=== PATIENT | female | born 1975 | race Caucasian/White ===

== ENCOUNTER 2018-02-22 00:21 | Emergency (ER) | payer MEDICARE, MEDICAID ==
[~2018-02-22] VITALS: Ht 170.2 cm; Wt 90.7 kg
[~2018-02-22 00:21] MED LIST: ABILIFY10 MG PO; ALPRAZOLAM0.5 M1 PO; BUPROPION; CARAFATE 1 GM TA1 G1 PO; CEPHALEXIN; CIPRO250 M1; CIPROFLOXACIN500 M3 OR; CIPROFLOXACIN500 M3 PO; CLONAZEPAM PO; CLONIPIN; FLOMAX0.4 MG PO; GEODON; GEODON60 MG PO; HYDROCODON-ACE1 EAC7; HYDROCODONE-AP1 EAC6 PO; KEFLEX500 MG PO; LAMICTAL XR100 MG PO; LEVSIN-SL0.125 MG PO; LEVSIN0.125 MG SUBLING; LORTAB 5 MG/5001 TA1; MAG-AL PLUS SUS30 ML PO; MOBIC15 MG PO; NEURONTIN300 MG PO; NICOTINE TRANSD21 M1; NITROFURANTOIN100 MG; NORCO 5-325 TA1 EACH PO; PERCOCET 5-3251 EACH PO; PHENAZOPYRIDIN200 M2 PO; PYRIDIUM200 M2 PO; PYRIDIUM200 MG PO; SENNA-S TABLET1 EACH PO; TYLENOL WITH CO1 TA1 PO; ULTRAM 50MG TAB50 MG PO; XANAX 0.25 MG0.25 MG PO; ZANAFLEX4 MG PO; ZOFRAN ODT4 MG PO; ZOFRAN4 MG PO
[2018-02-22 00:45] LABS: ABSOLUTE BASOPHILS 0.1 thou/uL (0.0-0.2); ABSOLUTE EOSINOPHILS 0.1 thou/uL (0.0-0.7); ABSOLUTE LYMPHOCYTES 1.1 thou/uL (0.8-5.3); ABSOLUTE MONOCYTES 0.3 thou/uL (0.0-1.2); ABSOLUTE NEUTROPHILS 6.9 thou/uL (1.6-8.1); BASOPHILS 0.6 %; EOSINOPHILS 0.8 %; HEMATOCRIT 40.2 % (37.0-47.0); HEMOGLOBIN 13.8 gm/dL (12.0-15.0); LYMPHOCYTES 13.3 %; MCH 33.5 pg (26.0-34.0); MCHC 34.3 g/dL (28.0-37.0); MCV 97.8 fL (80.0-100.0); MONOCYTES 3.2 %; MPV 7.7 fl. (7.2-11.1); NUCLEATED RBCS 0 /100WBC; PLATELET COUNT* 124 thou/uL (150-400); POLYS 82.1 %; RBC 4.11 mil/uL (4.20-5.00); RDW-CV 14.5 % (10.5-14.5); WBC 8.4 thou/uL (4.0-11.0)
[2018-02-22 00:55] LABS: APTT 30.1 Seconds (25.0-31.3); INR 1.1; PROTIME 10.3 Seconds (9.20-11.50)
[2018-02-22 01:01] LABS: CALCIUM 9.2 mg/dL (8.5-10.1); CREATININE 0.8 mg/dL (0.6-1.3); POTASSIUM 3.3 mmol/L (3.5-5.1)
[2018-02-22 01:06] LABS: TOTAL BILIRUBIN 0.6 mg/dL (<0.1-1.0); TOTAL PROTEIN 6.6 g/dL (6.4-8.2)
[2018-02-22 04:37] VITALS: BP 132/78
--- NOTE | 2018-02-22 17:57 | EKG ---
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
[2018-03-20] MEDS ORDERED: KEFLEX500 M1 PO (11:35)
[2018-03-20] MEDS ORDERED: VITAMIN D3400 UNIT PO (11:35)
== END 2018-02-22 04:38 | disposition home or self-care (01) ==
LOC: M.ERS 00:21
PROVIDERS: Personal Emergency Response Attendant
DX: R07.89 Other chest pain (principal); F41.9 Anxiety disorder, unspecified; F31.9 Bipolar disorder, unspecified; F17.210 Nicotine dependence, cigarettes, uncomplicated; Z88.2 Allergy status to sulfonamides; Z85.118 Personal history of other malignant neoplasm of bronchus and lung; Z85.841 Personal history of malignant neoplasm of brain

== ENCOUNTER 2018-03-09 06:47 | Emergency (ER) | payer MEDICARE, MEDICAID ==
[~2018-03-09] VITALS: Ht 170.2 cm; Wt 94.8 kg
[2018-03-09 07:09] VITALS: BP 124/72
[2018-03-09] MEDS ORDERED: DEXAMETHASONE1 MG PO (07:11)
[2018-03-09] MEDS ORDERED: KEPPRA250 MG PO (07:11)
[2018-03-09] MEDS ORDERED: FOLIC ACID1 MG PO (07:12)
[2018-03-09] MEDS ORDERED: ONDANSETRON HCL4 M2 PO (07:12)
[2018-03-20] MEDS ORDERED: VITAMIN D3400 UNIT PO (11:35)
[2018-03-20] MEDS ORDERED: KEFLEX500 M1 PO (11:35)
== END 2018-03-09 07:25 | disposition left against medical advice (07) ==
LOC: M.ERS 06:47
DX: M79.604 Pain in right leg (principal); M79.605 Pain in left leg; F31.9 Bipolar disorder, unspecified; F41.9 Anxiety disorder, unspecified; Z88.2 Allergy status to sulfonamides; Z90.710 Acquired absence of both cervix and uterus; Z87.442 Personal history of urinary calculi; Z85.118 Personal history of other malignant neoplasm of bronchus and lung; Z85.841 Personal history of malignant neoplasm of brain

== ENCOUNTER → 2018-03-20 | Outpatient (CLI) | payer MEDICARE, MEDICAID ==
[~2018-03-20] VITALS: Ht 170.2 cm; Wt 92.5 kg
[~2018-03-20] MED LIST changes: +ATIVAN0.5 MG PO; +DEXAMETHASONE1 MG PO; +ENOXAPARIN100 MG/11 SUBQ; +FLEXERIL PO; +FOLIC ACID1 MG PO; +KEFLEX500 M1 PO; +KEPPRA 500 MG500 M1 PO; +KEPPRA250 MG PO; +LIDOPIN28 GM TOP; +ONDANSETRON HCL4 M2 PO; +PERCOCET PO; +PHENERGAN 25 MG25 M1 PO; +PHENERGAN12.5 M2 RECTAL; +POTASSIUM20 PO; +TYLENOL325 M1 PO; +VITAMIN D3400 UNIT PO
[2018-03-20 11:17] VITALS: BP 128/83
[2018-03-20 11:18] LABS: HEMATOCRIT 36.1 % (37.0-47.0); HEMOGLOBIN 12.3 gm/dL (12.0-15.0); MCH 33.9 pg (26.0-34.0); MCV 99.5 fL (80.0-100.0); MPV 8.4 fl. (7.2-11.1); RBC 3.63 mil/uL (4.20-5.00); RDW-CV 14.8 % (10.5-14.5); WBC 4.6 thou/uL (4.0-11.0)
[2018-03-20 11:28] LABS: APTT 21.5 Seconds (25.0-31.3)
[2018-03-20 11:34] LABS: ALBUMIN 3.2 g/dL (3.4-5.0); CALCIUM 8.9 mg/dL (8.5-10.1); CREATININE 0.8 mg/dL (0.6-1.3); POTASSIUM 4.2 mmol/L (3.5-5.1); TOTAL BILIRUBIN 0.2 mg/dL (<0.1-1.0)
[2018-03-20 14:20] VITALS: BP 112/79
== END | disposition home or self-care (01) ==
LOC: M.INT 10:41
PROVIDERS: Radiology Diagnostic Radiology
DX: Z45.2 Encounter for adjustment and management of vascular access device (principal); C34.90 Malignant neoplasm of unspecified part of unspecified bronchus or lung; F31.9 Bipolar disorder, unspecified; F41.9 Anxiety disorder, unspecified; F17.210 Nicotine dependence, cigarettes, uncomplicated; Z90.710 Acquired absence of both cervix and uterus; Z87.442 Personal history of urinary calculi; Z85.841 Personal history of malignant neoplasm of brain; Z79.01 Long term (current) use of anticoagulants; Z79.899 Other long term (current) drug therapy; Z88.2 Allergy status to sulfonamides; Z80.9 Family history of malignant neoplasm, unspecified; Z82.3 Family history of stroke

== ENCOUNTER 2018-03-29 00:09 | Emergency (ER) | payer MEDICARE, MEDICAID ==
[~2018-03-29] VITALS: Ht 170.2 cm; Wt 97.1 kg
[~2018-03-29 00:09] MED LIST changes: -ATIVAN0.5 MG PO; -ENOXAPARIN100 MG/11 SUBQ; -FLEXERIL PO; -KEPPRA 500 MG500 M1 PO; -LIDOPIN28 GM TOP; -PERCOCET PO; -PHENERGAN 25 MG25 M1 PO; -PHENERGAN12.5 M2 RECTAL; -POTASSIUM20 PO; -TYLENOL325 M1 PO
[2018-03-29 01:44] LABS: ABSOLUTE NEUTROPHILS 4.6 thou/uL (1.6-8.1); BASOPHILS 0.4 %; EOSINOPHILS 0.1 %; HEMATOCRIT 36.8 % (37.0-47.0); HEMOGLOBIN 12.5 gm/dL (12.0-15.0); MCH 33.6 pg (26.0-34.0); MCHC 33.8 g/dL (28.0-37.0); MCV 99.4 fL (80.0-100.0); MONOCYTES 0.4 %; MPV 7.4 fl. (7.2-11.1); NUCLEATED RBCS 0 /100WBC; PLATELET COUNT* 256 thou/uL (150-400); POLYS 81.1 %; RBC 3.71 mil/uL (4.20-5.00); RDW-CV 16.4 % (10.5-14.5); WBC 5.7 thou/uL (4.0-11.0)
[2018-03-29 01:46] LABS: CALCIUM 9.2 mg/dL (8.5-10.1); CREATININE 0.6 mg/dL (0.6-1.3)
[2018-03-29 01:51] LABS: ALBUMIN 3.2 g/dL (3.4-5.0); TOTAL BILIRUBIN 0.7 mg/dL (<0.1-1.0); TOTAL PROTEIN 6.8 g/dL (6.4-8.2)
[2018-03-29 03:00] VITALS: BP 134/82
[2018-03-29] MEDS ORDERED: PHENERGAN12.5 M2 RECTAL (03:05)
--- NOTE | 2018-03-29 17:26 | EKG ---
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 03/29/18 1726 0115 0115 John Walls MD, FAC /EPI
== END 2018-03-29 03:05 | disposition home or self-care (01) ==
LOC: M.ERS 00:09
PROVIDERS: Personal Emergency Response Attendant
DX: R11.2 Nausea with vomiting, unspecified (principal); R10.84 Generalized abdominal pain; F31.9 Bipolar disorder, unspecified; F41.9 Anxiety disorder, unspecified; Z88.2 Allergy status to sulfonamides; Z90.710 Acquired absence of both cervix and uterus; Z87.442 Personal history of urinary calculi; Z85.841 Personal history of malignant neoplasm of brain; Z85.118 Personal history of other malignant neoplasm of bronchus and lung

== ENCOUNTER → 2018-04-05 | Outpatient (CLI) | payer MEDICARE, MEDICAID ==
[~2018-04-05] MED LIST changes: +ATIVAN0.5 MG PO; +ENOXAPARIN100 MG/11 SUBQ; +FLEXERIL PO; +KEPPRA 500 MG500 M1 PO; +LIDOPIN28 GM TOP; +PERCOCET PO; +PHENERGAN 25 MG25 M1 PO; +PHENERGAN12.5 M2 RECTAL; +POTASSIUM20 PO; +TYLENOL325 M1 PO
== END ==
LOC: M.ULTRA 15:37
DX: S01.90XD Unspecified open wound of unspecified part of head, subsequent encounter (principal); M54.2 Cervicalgia; R22.41 Localized swelling, mass and lump, right lower limb; C79.31 Secondary malignant neoplasm of brain; C34.90 Malignant neoplasm of unspecified part of unspecified bronchus or lung; X58.XXXD Exposure to other specified factors, subsequent encounter

== ENCOUNTER → 2018-04-07 | Outpatient (CLI) | payer MEDICARE, MEDICAID | LOC: M.WC 07:48 | DX: T81.31XD Disruption of external operation (surgical) wound, not elsewhere classified, subsequent encounter (principal); M00.80 Arthritis due to other bacteria, unspecified joint; B96.89 Other specified bacterial agents as the cause of diseases classified elsewhere; C34.90 Malignant neoplasm of unspecified part of unspecified bronchus or lung; C71.9 Malignant neoplasm of brain, unspecified; K21.9 Gastro-esophageal reflux disease without esophagitis; F41.1 Generalized anxiety disorder; F33.1 Major depressive disorder, recurrent, moderate; Z87.891 Personal history of nicotine dependence; Y83.8 Other surgical procedures as the cause of abnormal reaction of the patient, or of later complication, without mention of misadventure at the time of the procedure ==

== ENCOUNTER 2018-04-10 08:53 | Emergency (ER) | payer MEDICARE, MEDICAID ==
[~2018-04-10] VITALS: Ht 172.7 cm; Wt 92.2 kg
--- NOTE | ~2018-04-10 | EKG ---
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
--- NOTE | ~2018-04-10 | EKG ---
[place] [address] ELECTROCARDIOGRAM REPORT Name: DENEEN PITTMAN Room: [facility]#: [id number] Admission: 04/10/18 Attend Phys: Discharge: 04/10/18 Date of : 77 Report #: [id number] THIS REPORT FOR: //name// [facility] ED Test Date: 2018-04-10 Test Time: 11:45:00 Pat Name: DENEEN PITTMAN Department: Room: Gender: F Jack Winder: WILLIAMS : 1975 Requested By: Chidi Lopez Order Number: [id number] MD: Measurements Intervals [place] Rate: 90 P: 26 NV: 131 QRS: 23 QRSD: 82 T: 34 QT: 332 QTc: 407 Interpretive Statements Sinus rhythm Compared to ECG 03/29/2018 01:15:54 No significant changes [email or web address] By: [id number] Epiphany EpiphanyMD /EPI
[~2018-04-10 08:53] MED LIST changes: -ATIVAN0.5 MG PO; -ENOXAPARIN100 MG/11 SUBQ; -FLEXERIL PO; -KEPPRA 500 MG500 M1 PO; -LIDOPIN28 GM TOP; -PERCOCET PO; -PHENERGAN 25 MG25 M1 PO; -POTASSIUM20 PO; -TYLENOL325 M1 PO
[2018-04-10] MEDS ORDERED: ENOXAPARIN100 MG/11 SUBQ (09:14)
[2018-04-10] MEDS ORDERED: TYLENOL325 M1 PO (09:15)
[2018-04-10] MEDS ORDERED: KEPPRA 500 MG500 M1 PO (09:15)
[2018-04-10] MEDS ORDERED: LIDOPIN28 GM TOP (09:15)
[2018-04-10 09:24] LABS: HEMATOCRIT 33.7 % (37.0-47.0); HEMOGLOBIN 11.5 gm/dL (12.0-15.0); MCH 33.4 pg (26.0-34.0); MCV 98.3 fL (80.0-100.0); NUCLEATED RBCS 1 /100WBC; PLATELET COUNT* 279 thou/uL (150-400); RBC 3.43 mil/uL (4.20-5.00); WBC 7.9 thou/uL (4.0-11.0)
[2018-04-10 09:32] LABS: ANION GAP 8 mmol/L (7-16); BUN 14 mg/dL (7-18); CHLORIDE 96 mmol/L (98-107); CO2 28 mmol/L (21-32); CREATININE 0.8 mg/dL (0.6-1.3); GLUCOSE 103 mg/dL (70-99); POTASSIUM 3.1 mmol/L (3.5-5.1); SODIUM 132 mmol/L (136-145)
[2018-04-10 09:42] LABS: ALBUMIN 3.2 g/dL (3.4-5.0); ALKALINE PHOSPHATASE 57 U/L (46-116); LIPASE 362 U/L (73-393); MAGNESIUM 1.6 mg/dL (1.8-2.4); NT-PRO BRAIN NAT PEPTIDE 84 pg/mL (<300); SGOT 14 U/L (15-37); SGPT 37 U/L (30-65); TOTAL BILIRUBIN 0.5 mg/dL (<0.1-1.0); TOTAL PROTEIN 7.2 g/dL (6.4-8.2); TROPONIN-I LEVEL <0.06 ng/mL (<0.06)
[2018-04-10 10:30] LABS: ABSOLUTE LYMPHOCYTES 2.8 thou/uL (0.8-5.3); ABSOLUTE MONOCYTES 0.3 thou/uL (0.0-1.2); ABSOLUTE NEUTROPHILS 4.8 thou/uL (1.6-8.1); ATYPICAL LYMPHS 3 %; METAMYELOCYTES 5 %
[2018-04-10 10:31] LABS: ANISOCYTOSIS 1+; PLATELET ESTIMATE ADEQUATE; POLYCHROMASIA 2+
[2018-04-10] MEDS ORDERED: PHENERGAN 25 MG25 M1 PO (11:55)
[2018-04-10] MEDS ORDERED: HYDROCODONE-AP1 EAC6 PO (11:55)
[2018-04-10] MEDS ORDERED: POTASSIUM20 PO (12:00)
[2018-04-10 12:09] VITALS: BP 119/80
== END 2018-04-10 12:09 | disposition home or self-care (01) ==
LOC: M.ERS 08:53
PROVIDERS: Emergency Medicine Emergency Medical Services
DX: R07.89 Other chest pain (principal); R11.2 Nausea with vomiting, unspecified; F41.9 Anxiety disorder, unspecified; F32.9 Major depressive disorder, single episode, unspecified; Z88.2 Allergy status to sulfonamides; Z90.710 Acquired absence of both cervix and uterus; Z87.442 Personal history of urinary calculi; Z85.841 Personal history of malignant neoplasm of brain; Z85.118 Personal history of other malignant neoplasm of bronchus and lung

== ENCOUNTER → 2018-04-14 | Outpatient (CLI) | payer MEDICARE, MEDICAID ==
[~2018-04-14] MED LIST changes: +ATIVAN0.5 MG PO; +ENOXAPARIN100 MG/11 SUBQ; +FLEXERIL PO; +KEPPRA 500 MG500 M1 PO; +LIDOPIN28 GM TOP; +PERCOCET PO; +PHENERGAN 25 MG25 M1 PO; +POTASSIUM20 PO; +TYLENOL325 M1 PO
== END ==
LOC: M.WC 04:58
DX: T81.31XD Disruption of external operation (surgical) wound, not elsewhere classified, subsequent encounter (principal); C34.90 Malignant neoplasm of unspecified part of unspecified bronchus or lung; C71.9 Malignant neoplasm of brain, unspecified; G40.89 Other seizures; K21.9 Gastro-esophageal reflux disease without esophagitis; M00.861 Arthritis due to other bacteria, right knee; F41.1 Generalized anxiety disorder; F33.1 Major depressive disorder, recurrent, moderate; Z87.891 Personal history of nicotine dependence; Z86.718 Personal history of other venous thrombosis and embolism; Y83.8 Other surgical procedures as the cause of abnormal reaction of the patient, or of later complication, without mention of misadventure at the time of the procedure

== ENCOUNTER 2018-04-22 04:38 | Inpatient (IN) | payer MEDICARE, MEDICAID ==
[~2018-04-22] VITALS: Ht 172.7 cm; Wt 90.0 kg
[~2018-04-22 04:38] MED LIST changes: -ATIVAN0.5 MG PO; -FLEXERIL PO; -PERCOCET PO
[2018-04-22 04:46] VITALS: BP 110/80
[2018-04-22 05:38] LABS: HEMATOCRIT 30.7 % (37.0-47.0); HEMOGLOBIN 10.5 gm/dL (12.0-15.0); NUCLEATED RBCS 0 /100WBC; PLATELET COUNT* 137 thou/uL (150-400)
[2018-04-22 05:40] LABS: MCH 33.9 pg (26.0-34.0); MCHC 34.3 g/dL (28.0-37.0); MCV 98.9 fL (80.0-100.0); MPV 8.6 fl. (7.2-11.1); RBC 3.11 mil/uL (4.20-5.00); RDW-CV 16.8 % (10.5-14.5); WBC 9.1 thou/uL (4.0-11.0)
[2018-04-22 05:54] LABS: ANION GAP 9 mmol/L (7-16); BUN 19 mg/dL (7-18); CALCIUM 9.2 mg/dL (8.5-10.1); CHLORIDE 97 mmol/L (98-107); CO2 27 mmol/L (21-32); CREATININE 0.7 mg/dL (0.6-1.3); GLUCOSE 110 mg/dL (70-99); POTASSIUM 3.3 mmol/L (3.5-5.1); SODIUM 133 mmol/L (136-145)
[2018-04-22 05:56] LABS: INR 1.1; PROTIME 10.8 Seconds (9.20-11.50)
[2018-04-22 06:05] LABS: ALBUMIN 2.4 g/dL (3.4-5.0); ALKALINE PHOSPHATASE 60 U/L (46-116); NT-PRO BRAIN NAT PEPTIDE 143 pg/mL (<300); SGOT 17 U/L (15-37); SGPT 16 U/L (30-65); TOTAL BILIRUBIN 0.8 mg/dL (<0.1-1.0); TOTAL PROTEIN 6.6 g/dL (6.4-8.2); TROPONIN-I LEVEL <0.06 ng/mL (<0.06)
[2018-04-22 06:07] LABS: ABSOLUTE LYMPHOCYTES 0.9 thou/uL (0.8-5.3); ABSOLUTE NEUTROPHILS 8.2 thou/uL (1.6-8.1); ATYPICAL LYMPHS 3 %; PLATELET ESTIMATE ADEQUATE
[2018-04-22 09:30] VITALS: BP 106/75
--- NOTE | 2018-04-22 09:30 | NUR ---
ER ADMIT TO ROOM 206 VIA CART. ADMISSION ASSESSMENT COMPLETE, DEFER TO COMPUTER CHARTING. NEEDLE BOARD REPAIRER PLACED TRACKING ST WITH PVC'S. ALERT ORIENTED. DENIES DIZZINESS, SOA, CHEST PAIN AT THIS TIME. PATIENT DOES REPORT HAVING RIGHT ARM AND RIGHT LEG PAIN, - NOTED EDEMA IN RIGHT ARM AND RIGHT LEG, WILL GIVE REPEAT PAIN MEDICATION WHEN AVAILABLE. ORIENTED TO ROOM/CALL LIGHT AND PLAN OF CARE, VERBALIZED UNDERSTANDING. CALL LIGHT WTIHIN REACH. WILL MONITOR.
[2018-04-22 09:31] VITALS: BP 124/80
--- NOTE | 2018-04-22 10:45 | NUR ---
DR ROBERTS ON FLOOR AND INTO SEE PATIENT. VERIFIED WITH DR ROBERTS IF OKAY FOR NURSING TO USE JANE CATH - OK FOR NURSING TO USE JANE CATH.
[2018-04-22 12:22] VITALS: BP 107/69
--- NOTE | 2018-04-22 12:50 | EKG ---
[place] [address] ELECTROCARDIOGRAM REPORT Name: DENEEN PITTMAN Room: [address] ADM IN .R.#: [id number] Admission: 04/22/18 Attend Phys: Fermin Reyes MD Discharge: Date of : 77 Report #: [id number] THIS REPORT FOR: //name// 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 Manager: LORI : 1975 Requested By: Eva Gerardo Order Number: [id number] MD: Tam Sandhu Measurements Intervals [place] Rate: 105 P: 25 RI: 131 QRS: 16 QRSD: 86 T: 261 QT: 293 QTc: 388 Interpretive Statements Sinus tachycardia Borderline T abnormalities, diffuse leads Compared to ECG 04/10/2018 11:45:00 T-wave abnormality now present Sinus rhythm no longer present Electronically Signed On 04-22-2018 12:50:33 CDT by Tam Sandhu [email or web address] <ELECTRONICALLY SIGNED> By: Tam Sandhu MD, FACC 04/22/18 1250 0543 0543 Tam Sandhu MD, FAC /EPI
[2018-04-22 16:25] VITALS: BP 114/71
--- NOTE | 2018-04-22 16:34 | NUR ---
SHEEP STICKER TRACKING WITH NO CHANGE IN RHYTHM. GIVEN PO PAIN MEDICATION AND IV PAIN MED TO ASSIST WITH COMPLAINTS OF RIGHT ARM AND RIGHT LEG DISCOMFORT. REMAINS ON ROOM AIR, 02 SAT 97%, NO SIGN OF RESPIRATORY DISTRESS OR COMPLAINTS OF SOA TO NURSING - FINGERS REMAIN CYANOTIC IN COLOR 1+ RADAL PULSE. IN BED RESTING WITH HOB ELEVATED, CALL LIGHT WITHIN REACH. WILL CONTINUE WITH PLAN OF CARE.
[2018-04-22 20:00] VITALS: BP 122/78
[2018-04-23] VITALS (7 sets, daily range): BP systolic 116–151; BP diastolic 51–88
[2018-04-23 01:51] LABS: HEMATOCRIT 27.6 % (37.0-47.0); HEMOGLOBIN 9.4 gm/dL (12.0-15.0); MCH 33.6 pg (26.0-34.0); MCV 98.6 fL (80.0-100.0); RBC 2.8 mil/uL (4.20-5.00); RDW-CV 16.5 % (10.5-14.5); WBC 4.6 thou/uL (4.0-11.0)
--- NOTE | 2018-04-23 05:43 | NUR ---
PATIENT RESTED IN BED, NO ACUTE CHANGES. PATIENT DID NOT SHOW SIGNS OF RESPIRATORY DISTRESS OR SOA. FALL PRECAUTIONS IN PLACE, CALL LIGHT WITH IN REACH, HOURLY ROUNDING OBSERVED.
--- NOTE | 2018-04-23 08:15 | NUR ---
RECIEVED REPORT. ASSUMED CARE OF PT AT 0730. VSS. CARDIAC MONTIORING IN PLACE SR. AM ASSESSMENT AND VITALS COMPLETED CHARTED. PT ALERT AND ORIENTED. PT ON RA. IV HEPARIN GTT INFUSING. PT REPORTS PAIN TO RIGHT ARM AND LEG. LIMB ALERT IN PLACE DUE TO DVT. PT IS UP AD BERENICE. [facility] TECH ASKING ABOUT US OF PORT-A-CATH. INFORMED US THAT PT HAD DVT IN SUBCLAVIAN AND THE PHYSCIAN ORDERED THE US. CALL LIGHT IS WITHIN REACH. WILL CONTINUE TO MONTIOR FOR DURATION OF SHFIT.
--- NOTE | 2018-04-23 17:07 | NUR ---
VSS. CARDIAC MONTIORING IN PLACE WITH NO CHANGES THIS SHIFT. PT REMAINS ON RA. IV HEPARIN INFUSING. ADJUSTEMENTS MADE PER PROTOCOL FOLLOW TREND ON HEPARIN FLOW SHEET. PT'S PAIN WELL MANAGED WITH PO/IV PAIN MEDS THIS SHIFT. VASCULAR CONSULT FOR POSSIBLE THROMBECTOMY PLACED PER DR. ARMAS. PT UP AD BERENICE. CALL LIGHT IS WITHIN REACH. WILL CONTINUE TO MONITOR FOR DURATION OF SHIFT.
[2018-04-24 04:18] VITALS: BP 128/80
[2018-04-24 04:50] LABS: HEMATOCRIT 25.6 % (37.0-47.0); HEMOGLOBIN 8.7 gm/dL (12.0-15.0); MCH 33.5 pg (26.0-34.0); MCHC 33.8 g/dL (28.0-37.0); MCV 99.2 fL (80.0-100.0); MPV 9.4 fl. (7.2-11.1); RBC 2.58 mil/uL (4.20-5.00); RDW-CV 16.5 % (10.5-14.5); WBC 3.8 thou/uL (4.0-11.0)
--- NOTE | 2018-04-24 04:58 | NUR ---
PATIENT RESTED IN BED, NO ACUTE CHANGES. PATIENT DID NOT SHOW SIGNS OF DISTRESS. FALL PRECAUTIONS IN PLACE, CALL LIGHT WITH IN REACH, HOURLY ROUNDING OBSEVERD.
[2018-04-24 08:30] VITALS: BP 124/82
--- NOTE | 2018-04-24 10:37 | NUR ---
ASSUMED PT CARE AT 0730, FULL ASSESMENT DONE CHARTED. PT A/O X4, C/O PAIN TO RIGHT ARM/RIGHT LEG, PT ALSO C/O NAUSEA AND INDIGESTION. PT GIVEN MEDS PER MAR, UPDATED ON WHEN SHE CAN TAKE MEDS NEXT. PT VERBALIZED UDNERSTADNING. HEPARIN GTT INFUSING, WILL DC TONIGHT AND SWITCH TO LOVENOX. PT EDUCATED ON THE PLAN, CHILDREN AT BEDSIDE ALSO UPDATED. VSS, SR ON THE MONITOR. FALL PRECAUTIONS IN PLACE. WILL CONTINUE WITH PLAN OF CARE.
--- NOTE | 2018-04-24 10:58 | NUR ---
Pt is A&O. Resides at home with her kids. Independent. No DME. No hx of HH or SNF. Plan dc to home this evening. Following.
[2018-04-24 16:00] VITALS: BP 114/83
[2018-04-24 20:00] VITALS: BP 119/77
[2018-04-25] VITALS (11 sets, daily range): BP systolic 105–146; BP diastolic 71–91
--- NOTE | 2018-04-25 04:00 | NUR ---
PATIENT RESTED IN BED, NO ACUTE CHANGES. PATIENT IS NOT SHOWING SIGNS OF DISTRESS. FALL PRECAUTIONS IN PLACE, CALL LIGHT WITH IN REACH, HOURLY ROUNDING OBSERVED. PAIN WAS BETTER CONTROLLED. PATIENT STATES PAIN IS TOLERABLE.
[2018-04-25 04:37] LABS: HEMATOCRIT 25.7 % (37.0-47.0); HEMOGLOBIN 8.7 gm/dL (12.0-15.0); MCH 33.6 pg (26.0-34.0); MCHC 33.9 g/dL (28.0-37.0); MCV 99.2 fL (80.0-100.0); MPV 9.8 fl. (7.2-11.1); RBC 2.59 mil/uL (4.20-5.00); RDW-CV 16.7 % (10.5-14.5); WBC 3.5 thou/uL (4.0-11.0)
--- NOTE | 2018-04-25 10:38 | NUR ---
PATIENT STATES SHE SLIPPED IN BATHROOM ON WET FLOOR AFTER SHOWER. PATIENT STATES SHE LANDED ON RIGHT LEG, BUT DENIES INJURY OR PAIN. DISCUSSED THE NEED TO PLACE PATIENT ON FALL PRECAUTIONS DUE TO THIS EVENT. PATIENT ADAMENTLY REFUSES TO BE LABLED A FALL RISK, REFUSES BED ALARMS, AND ARMBAND. WILL CONTINUE TO MONITOR.
--- NOTE | 2018-04-25 16:19 | NUR ---
DR. WEEKS ROUNDED AND PATIENT WILL START VARGATROBAN GTT TONIGHT FOR PRESUMPTIVE HEPARIN INDUCED THROMBOCYTOPENIA. HIT PENDING. ORDERS TO TRANSFER TO ICU FOR CLOSER MONITORING.
--- NOTE | 2018-04-25 16:45 | NUR ---
INFORMED PATIENT WILL TRANSFER TO ICU FOR ARGATROBAN INFUSION ORDERED BY DR. WEEKS.
--- NOTE | 2018-04-25 17:00 | NUR ---
NURSING DOCUMENTATION BY GRAZYNA SANCHEZ REVIEWED.
--- NOTE | 2018-04-25 17:59 | NUR ---
REPORT GIVEN TO TYREE WAN
--- NOTE | 2018-04-25 18:23 | NUR ---
PATIENT TRANSFERRED TO ICU AT THIS TIME
--- NOTE | 2018-04-25 18:24 | NUR ---
CALLED DR CASTANEDA TO CLARIFY ORDERS FOR ARGATROBAN. ORDERS READ TO TITRATE MED TO PT'S BASELINE. APTT DRAWN AND PTT IS 32.9. PER DR CASTANEDA USE THIS NUMBER PT'S BASELINE.
--- NOTE | 2018-04-25 20:21 | NUR ---
AGRATROBAN GTT ORDERS CLARIFIED WITH DR CASTANEDA, GTT STARTED PER PROTOCOL.
--- NOTE | 2018-04-25 21:10 | NUR ---
APTT 50.2, NO CHANGE IN ARGATROBAN GTT RATE PER PROTOCOL.
[2018-04-26] VITALS (8 sets, daily range): BP systolic 104–133; BP diastolic 67–84
--- NOTE | 2018-04-26 01:56 | NUR ---
APTT >200, ARGATROBAN GTT RATE DECREASED TO 1MCG/KG/MIN PER PROTOCOL.
[2018-04-26 04:27] LABS: HEMATOCRIT 24.1 % (37.0-47.0); HEMOGLOBIN 8.2 gm/dL (12.0-15.0); MCH 33.5 pg (26.0-34.0); MCHC 33.9 g/dL (28.0-37.0); MCV 98.8 fL (80.0-100.0); MPV 9.8 fl. (7.2-11.1); RBC 2.44 mil/uL (4.20-5.00); RDW-CV 16.4 % (10.5-14.5); WBC 3.5 thou/uL (4.0-11.0)
[2018-04-26 05:16] LABS: CALCIUM 8.6 mg/dL (8.5-10.1); CREATININE 0.7 mg/dL (0.6-1.3); MAGNESIUM 1.8 mg/dL (1.8-2.4); POTASSIUM 4.1 mmol/L (3.5-5.1)
--- NOTE | 2018-04-26 06:17 | NUR ---
VSS, TACHYCARDIC 130-140'S WHEN UP TO BSC BUT OTHERWISE <100. SIGNIFICANT PAIN IN RUE AND RLE TREATED WITH PRN PAIN MEDS ORDERED WITH ADEQUATE RELIEF PER PT. PT HAD MODERATE FORMED BM TONIGHT. ARGATROBAN GTT INFUSING ORDERED, TITRATED PER PROTOCOL BASED ON APTT LEVELS DRAWN 2H AFTER INITIATION AND EACH DOSAGE CHANGE. CURRENT RATE 0.5MCG/KG/MIN DUE TO APTT >200. DR CASTANEDA PAGED TO NOTIFY OF PLT 41 THIS AM, PREVIOUS RESULT 59. CALL LIGHT WITHIN REACH.
--- NOTE | 2018-04-26 15:39 | NUR ---
PT REFUSING MONITORING. REMOVED ALL MONITORS FROM PT. PT REQUESTED TO LEAVE AMA BUT CHANGED HER MIND. PT WILL CONTINUE WITH THE ARGATROBAN. NOTIFIED HOSPITALIST. PT WOULD LIKE TO SMOKE BUT IS WILLING TO TRY THE NICOTINE GUM. PT STATED SHE CAN NOT TAKE THE NICOTINE PATCH, IT BREAKS HER OUT.
[2018-04-27 03:46] LABS: HEMATOCRIT 25.6 % (37.0-47.0); HEMOGLOBIN 8.8 gm/dL (12.0-15.0); MCH 33.6 pg (26.0-34.0); MCHC 34.5 g/dL (28.0-37.0); MCV 97.3 fL (80.0-100.0); MPV 9.3 fl. (7.2-11.1); RBC 2.63 mil/uL (4.20-5.00); RDW-CV 16.3 % (10.5-14.5); WBC 3.3 thou/uL (4.0-11.0)
[2018-04-27 04:01] LABS: CALCIUM 8.6 mg/dL (8.5-10.1); CREATININE 0.7 mg/dL (0.6-1.3); MAGNESIUM 1.7 mg/dL (1.8-2.4); POTASSIUM 4.3 mmol/L (3.5-5.1)
--- NOTE | 2018-04-27 06:10 | NUR ---
PT. REMAINS ON ARGATROBAN GTT, APTT THERAPEUTIC THIS A.M. PT. CONTINUES TO REFUSE CARDIAC MONITORING AND BP MONITORING. REMAINS ON ROOM AIR. UP AD BERENICE INDEPENDENTLY. HEATING PAD TURNED ON THIS A.M. PER PT. REQUEST. UNABLE TO DRAW ENOUGH BLOOD FROM PORT FOR LAB THIS A.M. PT. C/O PAIN 10/10 THROUGHOUT SHIFT, FENTANYL GIVEN PER PRN ORDER. C/O NAUSEA, ZOFRAN PO AND IV, PHENERGAN GIVEN PER PRN ORDER. CALL LIGHT IN REACH, WILL CONTINUE TO MONITOR.
--- NOTE | 2018-04-27 06:15 | NUR ---
CRITICAL PLATELET COUNT RELAYED TO DR. WINN. NO NEW ORDERS
[2018-04-27 09:40] VITALS: BP 130/78
[2018-04-27 12:36] VITALS: BP 113/70
[2018-04-27 18:00] VITALS: BP 113/80; BP 117/70; BP 120/69; BP 123/67
--- NOTE | 2018-04-27 18:29 | NUR ---
PT AGREEABLE TO WEAR RN IMAGING. PT C/O OF PAIN AND NAUSEA THIS SHIFT. THIS AM AFTER ADMINISTERING ALL PRN IV AND PO MEDICATION AT REASSESSMENT PT STILL REPORTING PAIN 10/10. DR NOTIFIED AND ASKED FOR INCREASE IN DOSAGE OF FENTANYL. RECEIVED ORDER FOR 75MCG OF FENTANYL. AFTER NEW ORDERS PT LOWEST PAIN RATING IS 6/10. PT C/O OF PAIN IN BUTTOCKS. PT ENCOURAGED TO REPOSITION IN BED. PT ABLE TO SELF-REPOSITION. PT REPORTS THIS HAS NOT HELPED. OFFERED ICE PACKS, AND PT ACCEPTED AND REPORTED THIS IMPROVED PAIN IN BUTTOCKS. PT HAS REFUSED MEALS DUE TO NAUSEA. DISCUSSED WITH PT FLUID RESTRICTION. PT HAS HAD 480ML OF ORAL FLUIDS. PT HAS ASKED ABOUT HOW LONG SHE WILL BE IN HOSPTAL. PT HAS APPEARED SAD THIS SHIFT. DISCUSSED WITH PT PLAN OF CARE. PT REPORTS SHE DOES NOT THINK SHE WILL BE ABLE TO DO ANY MORE CHEMO TREATMENTS "ANY TIME I HAVE CHEMO I END UP HERE". THIS AM DTR CALLED AND PT DID NOT WANT TO SPEAK TO DTR. PT OKAY WITH THIS RN GIVING AN UPDATE. LATER IN SHIFT DTR CAME TO VISIT WITH GRANDCHILDREN. PT RECEIVING PLATLET INUSION PER DR. WEEKS. IMMATURE PLATLET LAB ORDERED BY DR. WEEKS. PER LAB, NOT ABLE TO DO THIS TEST TODAY, CAN DO TOMORROW IN AM. DR WEEKS PAGED AND MADE AWARE. PT TO HAVE LAB TEST IN AM.
[2018-04-27 19:00] VITALS: BP 118/74
[2018-04-27 22:02] LABS: URINE POTASSIUM-RANDOM 43.7 mmol/L
[2018-04-27 22:02] LABS: URINE BILIRUBIN NEGATIVE (Negative); URINE BLOOD 2+ (Negative); URINE CLARITY SL CLOUDY; URINE COLOR YELLOW; URINE GLUCOSE-RANDOM NEGATIVE (Negative); URINE KETONES NEGATIVE (Negative); URINE LEUKOCYTES-REFLEX 2+ (Negative); URINE NITRITE-REFLEX NEGATIVE (Negative); URINE PROTEIN NEGATIVE (Negative); URINE UROBILINOGEN 0.2 E.U./dl (0.2-1.0)
[2018-04-27 22:04] LABS: BACTERIA-REFLEX >30 Many /HPF (None Seen); MUCUS 0-3 Light strn/LPF (None Seen); SQUAMOUS >10 Many /LPF (0-3)
[2018-04-27 22:06] LABS: CASTS None Seen /LPF (None Seen); URINE RBC 3-10 Few /HPF (0-2)
[2018-04-27 22:09] LABS: URINE WBC-REFLEX 6-15 Few /HPF (0-5)
[2018-04-27 22:10] LABS: CRYSTALS None Seen /LPF (None Seen); TRANSITIONAL EPITHEL CELL 4-10 Moderate /LPF (None Seen)
[2018-04-27 23:00] VITALS: BP 154/76
[2018-04-28 01:00] VITALS: BP 144/81
--- NOTE | 2018-04-28 06:24 | NUR ---
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 CALL LIGHT REMAINS IN REACH THROUGHOUT SHIFT, BED REMAINS IN LOW AND LOCKED POSITION, PT REFUSING FALL PRECAUTIONS.
[2018-04-28 07:07] LABS: HEMATOCRIT 20.1 % (37.0-47.0); MCH 33.3 pg (26.0-34.0); MCHC 33.7 g/dL (28.0-37.0); MCV 98.7 fL (80.0-100.0); MPV 8.1 fl. (7.2-11.1); RBC 2.03 mil/uL (4.20-5.00); RDW-CV 16.7 % (10.5-14.5); WBC 2.1 thou/uL (4.0-11.0)
[2018-04-28 07:11] LABS: CALCIUM 8.7 mg/dL (8.5-10.1); CREATININE 0.7 mg/dL (0.6-1.3); MAGNESIUM 1.7 mg/dL (1.8-2.4); POTASSIUM 4.3 mmol/L (3.5-5.1)
[2018-04-28 07:15] LABS: HEMOGLOBIN 6.8 gm/dL (12.0-15.0)
[2018-04-28 07:20] LABS: APTT 31.2 Seconds (25.0-31.3)
[2018-04-28 07:55] VITALS: BP 119/74
[2018-04-28 09:32] VITALS: BP 111/68; BP 119/72; BP 125/72
--- NOTE | 2018-04-28 12:40 | NUR ---
ICU TX TO RM 231 REPORT GIVEN AND PATIENT TO RM VIA CART ORIENTED TO RM AND CALL LIGHT BED ALARM SET NO C/O PAIN
[2018-04-28 14:13] LABS: HEMATOCRIT 21.9 % (37.0-47.0); HEMOGLOBIN 7.5 gm/dL (12.0-15.0)
--- NOTE | 2018-04-28 19:39 | NUR ---
PATIENT PULLED OUT PORTACATH BY ACCIDENT IV PERIPHERAL L FA USED
[2018-04-29 00:09] VITALS: BP 125/79
[2018-04-29 04:26] VITALS: BP 141/84
[2018-04-29 04:57] LABS: HEMATOCRIT 22.3 % (37.0-47.0); HEMOGLOBIN 7.8 gm/dL (12.0-15.0); MCHC 34.9 g/dL (28.0-37.0); MCV 94.6 fL (80.0-100.0); MPV 9.2 fl. (7.2-11.1); RBC 2.36 mil/uL (4.20-5.00); RDW-CV 18.3 % (10.5-14.5)
[2018-04-29 05:10] LABS: CALCIUM 8.6 mg/dL (8.5-10.1); CREATININE 0.7 mg/dL (0.6-1.3); MAGNESIUM 1.4 mg/dL (1.8-2.4); POTASSIUM 4.1 mmol/L (3.5-5.1)
--- NOTE | 2018-04-29 05:12 | NUR ---
this nurse assumes care of pt 04/28/18 at 1900, pt is awake, oriented x3, pt has a flat and depressed mood, skin is dusky, pt complains of back, butt, bilat leg, and arm pain, she rates her pain 8/10, pts o2 sat is 87-88 on room air, placed on supplemental o2 at 2L, pt denies soa, rt lower extremity has 2+ nonpitting edema, pt on precautions due to recieving chemo, critical labs reported to dr forrest this morning wbc 1.9, plt 23, no new orders received, pt medicated for pain and nausea throughout the night, no emesis, pt rests quietly in bed, call light within reach, bed alarm on
[2018-04-29 05:24] LABS: WBC 1.9 thou/uL (4.0-11.0)
[2018-04-29 08:11] VITALS: BP 150/70
--- NOTE | 2018-04-29 12:11 | NUR ---
PT STATED THEY WANT TO GO HOME OR THEY WILL LEAVE AMA. ONCOLOGY CALLED AND STATED THEY WOULD NOT SIGN OFF. PT THEN STATED THEY WILL LEAVE AMA. PAPER WORK SIGNED AND IV REMOVED AT THIS TIME. HOURLY ROUNDING COMPLETED. PT LEFT VIA WHEELCHAIR TO HOME CARE.
[2018-04-29 12:14] VITALS: BP 150/70
[2018-04-29 12:38] VITALS: BP 150/70
--- NOTE | 2018-04-29 12:56 | NUR ---
Pt left AMA
== END 2018-04-29 12:40 | disposition left against medical advice (07) | DRG 299 ==
LOC: M.ERS 04:38 → M.2W 08:52 → M.TBA-ER 08:52 → M.2W 09:28 → M.ICU 04-25 18:30 → M.2W 04-28 12:40
PROVIDERS: Emergency Medicine; Internal Medicine; Internal Medicine Hematology & Oncology; ADMIT Internal Medicine
PROC: 30233R1 Transfusion of Nonautologous Platelets into Peripheral Vein, Percutaneous Approach (ICD-10-PCS; principal; 2018-04-27)
PROC: 30233N1 Transfusion of Nonautologous Red Blood Cells into Peripheral Vein, Percutaneous Approach (ICD-10-PCS; 2018-04-28)
DX: I82.621 Acute embolism and thrombosis of deep veins of right upper extremity (principal); D61.810 Antineoplastic chemotherapy induced pancytopenia; D68.59 Other primary thrombophilia; E87.1 Hypo-osmolality and hyponatremia; C34.90 Malignant neoplasm of unspecified part of unspecified bronchus or lung; C79.31 Secondary malignant neoplasm of brain; I82.431 Acute embolism and thrombosis of right popliteal vein; I82.401 Acute embolism and thrombosis of unspecified deep veins of right lower extremity; F31.9 Bipolar disorder, unspecified; F17.210 Nicotine dependence, cigarettes, uncomplicated; F12.90 Cannabis use, unspecified, uncomplicated; F41.0 Panic disorder [episodic paroxysmal anxiety]; F41.1 Generalized anxiety disorder; K59.00 Constipation, unspecified; D64.9 Anemia, unspecified; D69.6 Thrombocytopenia, unspecified; Z53.21 Procedure and treatment not carried out due to patient leaving prior to being seen by health care provider; Z90.710 Acquired absence of both cervix and uterus; Z79.01 Long term (current) use of anticoagulants; Z87.442 Personal history of urinary calculi; Z88.2 Allergy status to sulfonamides; Z79.899 Other long term (current) drug therapy

== ENCOUNTER 2018-05-01 23:09 | Inpatient (IN) | payer MEDICARE, MEDICAID ==
[~2018-05-01] VITALS: Ht 170.2 cm; Wt 85.1 kg
[2018-05-01 23:10] VITALS: BP 117/71
[2018-05-01] MEDS ORDERED: PERCOCET PO (23:47)
[2018-05-01] MEDS ORDERED: ATIVAN0.5 MG PO (23:47)
[2018-05-01] MEDS ORDERED: FLEXERIL PO (23:47)
[2018-05-02 00:01] LABS: URINE BLOOD 3+ (Negative); URINE CLARITY CLEAR; URINE COLOR YELLOW; URINE GLUCOSE-RANDOM NEGATIVE (Negative); URINE KETONES 1+ (Negative); URINE LEUKOCYTES-REFLEX TRACE (Negative); URINE NITRITE-REFLEX NEGATIVE (Negative); URINE PROTEIN 2+ (Negative); URINE SPECIFIC GRAVITY 1.015 (1.005-1.030); URINE UROBILINOGEN 0.2 E.U./dl (0.2-1.0)
[2018-05-02 00:11] LABS: URINE BILIRUBIN 1+ (Negative)
[2018-05-02 00:13] LABS: ICTOTEST (BILI CONFIRMATORY) Positive (Negative)
--- NOTE | 2018-05-02 01:12 | NUR ---
WHEN GIVING REPORT TO THE INPATIENT NURSE, THIS NURSE WAS INFORMED THAT THE PATIENT HAD LEFT AMA 3 DAYS AGO AND THAT THE PATIENT HAD A THROMBUS BY HER POWER PORT. DR. HULL NOTIFIED AND PORT DEACCESSED.
[2018-05-02 01:30] VITALS: BP 130/84
[2018-05-02 01:37] LABS: HYALINE CASTS 4-10 Moderate /LPF (None Seen); MUCUS 4-6 Moderate strn/LPF (None Seen); SQUAMOUS 0-3 Few /LPF (0-3)
[2018-05-02 01:38] LABS: URINE RBC >20 Many /HPF (0-2); URINE WBC-REFLEX 6-15 Few /HPF (0-5)
[2018-05-02 01:39] LABS: CRYSTALS None Seen /LPF (None Seen)
--- NOTE | 2018-05-02 02:22 | NUR ---
ASSUMED CARE OF PATIENT FROM ER. PATIENT VERY DROWSY, FOLLOWS MINIMAL COMMANDS, UNABLE TO ANSWER ANY ADMISSION QUESTIONS. NO FAMILY PRESENT. VITALS STABLE. MED SURGE STATUS, NO ORDER YET FOR CODE STATUS. PICTURES OF WOUNDS PLACED ON CHART. CASE MANAGEMENT CONSULTED FOR HOSPICE EVALUATION. STABLE AT THIS TIME, WILL CONTINUE TO MONITOR.
[2018-05-02 08:00] VITALS: BP 111/78
[2018-05-02 11:31] LABS: AMP/METHAMP Negative (Negative); BARBITURATES Negative (Negative); BENZODIAZEPINES POSITIVE (Negative); COCAINE Negative (Negative); METHADONE Negative (Negative); OPIATES POSITIVE (Negative); PCP Negative (Negative); THC POSITIVE (Negative)
[2018-05-02 11:43] LABS: HEMOGLOBIN 7.5 gm/dL (12.0-15.0); MCH 32.7 pg (26.0-34.0); MCHC 34.2 g/dL (28.0-37.0); MCV 95.4 fL (80.0-100.0); MPV 9.2 fl. (7.2-11.1); NUCLEATED RBCS 0 /100WBC; RBC 2.31 mil/uL (4.20-5.00); RDW-CV 17.8 % (10.5-14.5); WBC 4.2 thou/uL (4.0-11.0)
[2018-05-02 11:45] VITALS: BP 116/72
[2018-05-02 11:56] LABS: ALBUMIN 1.8 g/dL (3.4-5.0); CALCIUM 8.6 mg/dL (8.5-10.1); CREATININE 0.8 mg/dL (0.6-1.3); POTASSIUM 3.8 mmol/L (3.5-5.1); TOTAL BILIRUBIN 0.4 mg/dL (<0.1-1.0); TOTAL PROTEIN 5.9 g/dL (6.4-8.2)
--- NOTE | 2018-05-02 12:00 | NUR ---
ASSUMED PT CARE AT 0730, FULL ASSESMENT DONE CHARTED. PT ORIENTED TO SELF, VERY DROWSY, C/O PAIN IN LOW BACK WHEN MOVED. PTS DAUGHTER AT BEDSIDE. FAMILY ALSO WITH PT. DR CONCEPCION DISCUSSED PLAN WITH FAMILY. PT STARTED ON TELE, IV STARTED IN RIGHT FA, PAIN MEDS GIVEN PER AUG. HEATING PAD APPLIED TO BACK. PT HAD TESTING THIS AFTERNOON IN CT AND MRI, SPOKE TO DTR(ANKIT) AND UPDATED ON PLAN OF CARE, HER PHONE NUMBER IS [phone]. CM ASSISTED PT AND DTR WITH DPO PAPERWORK. DISCUSSION ABOUT PT BEING DNR DISCUSSED. PT FULL CODE AT THIS TIME. PTS VSS, SR ON THE MONITOR. ON 2L O2, SATS DROP INTO THE 80'S ON RA. PT REFUSING TO EAT, WILL DRINK PEPSI, PT INCONT OF URINE. FALL PRECAUTIONS IN PLACE. WILL CONTINUE TO MONITOR.
[2018-05-02 12:10] LABS: PLATELET COUNT* 13 thou/uL (150-400)
[2018-05-02 12:14] LABS: ABSOLUTE LYMPHOCYTES 0.3 thou/uL (0.8-5.3); ABSOLUTE MONOCYTES 0.3 thou/uL (0.0-1.2); ABSOLUTE NEUTROPHILS 3.6 thou/uL (1.6-8.1)
[2018-05-02 12:18] LABS: PLATELET ESTIMATE DECREASED
[2018-05-02 12:19] LABS: ANISOCYTOSIS 1+
[2018-05-02 12:20] LABS: POIKILOCYTOSIS 1+; POLYCHROMASIA 1+
--- NOTE | 2018-05-02 12:50 | NUR ---
SPOKE WITH PT.AND DAUGHTER,CHRISTIANO. PT.WAS AWAKE. EXPLAINED WHAT A DPOA WAS ADN THAT IT WOULDN'T GO INTO AFFECT UNLESS SHE COULDN'T MAKE HER OWN DECISIONS. SHE REACHED OVER AND TOUCHED HER DAUGHTER WHEN I ASKED HER IF SHE KNEW WHO SHE WANTED TO NAME HER DPOA. DPOA FORM WITNESSED AND NOTARIZED. COPY PLACED ON CHART. ORIGINAL AND 3 COPIES GIVEN TO DAUGHTER. ORDERED MRI AND CT. CM WILL WAIT FOR RESULTS AND THEN DISCUSS HOSPICE WITH PT.AND DTR.
--- NOTE | 2018-05-02 13:32 | NUR ---
WOUND CARE NOTE: CONSULT RECEIVED FOR OPEN WOUND FROM PREVIOUS SHUNT PATIENT PRESENTS WILL A FULL THICKNESS LESION TO THE RIGHT SIDE OF HER HEAD, JUST BEHIND HER EAR. DISTAL INCISION AREA IS WELL APPROXIMATED, HOWEVER THERE IS A FULL THICKNESS OPENING PROXIMALLY. WOUND MEASURES 2.6X0.7X0.5. WOUND BED IS 85% YELLOW, ADHERENT SLOUGH TISSUE. AND 15% RED, MOIST TISSUE. BRE-WOUND WITH DRIED DRAINAGE. CLEANSED WOUND, BUT AREA IS TENDER. UNABLE TO REMOVE ALL DRIED DRAINAGE. WOUND IS CURRENTLY DRAINING SMALL AMOUNTS OF SEROUS DRAINAGE. APPLIED AQUACEL AG INTO WOUND BED AND COVERED WITH BORDERED FOAM. PATIENT TOLERATED DRESSING CHANGE WELL. EDUCATED ON DRESSING SELECTION, BUT WILL NEED REINFORCEMENT PATIENT WAS FALLING ASLEEP DURING EDUCATION. RECOMMEND ENCOURAGE GOOD NUTRTION/HYDRATION: ALBUMIN 1.8 Q3 DAY DRESSING CHANGES ENCOURAGE SMOKING CESSATION.
[2018-05-02 17:00] VITALS: BP 116/72
[2018-05-02 20:00] VITALS: BP 130/86
[2018-05-03] VITALS: BP 137/82
[2018-05-03 04:00] VITALS: BP 112/76
[2018-05-03 05:56] LABS: ABSOLUTE LYMPHOCYTES 0.3 thou/uL (0.8-5.3); ABSOLUTE MONOCYTES 0.1 thou/uL (0.0-1.2); ABSOLUTE NEUTROPHILS 5.2 thou/uL (1.6-8.1); BASOPHILS 0.1 %; EOSINOPHILS 0.1 %; HEMATOCRIT 22.9 % (37.0-47.0); HEMOGLOBIN 7.7 gm/dL (12.0-15.0); LYMPHOCYTES 4.9 %; MCH 32.4 pg (26.0-34.0); MCHC 33.5 g/dL (28.0-37.0); MCV 96.6 fL (80.0-100.0); MONOCYTES 2.2 %; MPV 10.2 fl. (7.2-11.1); NUCLEATED RBCS 0 /100WBC; POLYS 92.7 %; RBC 2.37 mil/uL (4.20-5.00); RDW-CV 17.4 % (10.5-14.5); WBC 5.6 thou/uL (4.0-11.0)
[2018-05-03 06:13] LABS: ALBUMIN 1.7 g/dL (3.4-5.0); CALCIUM 8.6 mg/dL (8.5-10.1); CREATININE 0.7 mg/dL (0.6-1.3); PLATELET COUNT* 12 thou/uL (150-400); POTASSIUM 3.7 mmol/L (3.5-5.1); TOTAL BILIRUBIN 0.4 mg/dL (<0.1-1.0); TOTAL PROTEIN 5.8 g/dL (6.4-8.2)
--- NOTE | 2018-05-03 07:20 | NUR ---
PATIENT RESTED IN BED. PAIN TREATED [facility].
[2018-05-03 08:06] VITALS: BP 125/72
[2018-05-03 12:00] VITALS: BP 139/75
--- NOTE | 2018-05-03 15:00 | NUR ---
PT.ON COMFORT CARE NOW AND DNR. SPOKE WITH DAUGHTER,CHRISTIANO,ABOUT PROGNOSIS, SCANS,ETC. HEATHER COULD NOT SEE HER BEFORE SHE LEFT FOR THE DAY SO CALLED HER ON HER CELL PHONE. SHE SAID THE DR.TOLD HER THAT HER MOM MIGHT LIVE 2-3 MORE WEEKS. DISCUSSED HOSPICE. SHE SAID SHE NOR HER FAMILY COULD TAKE HER MOM HOME AND CARE FOR HER THERE IS NO ONE THAT COULD BE WITH HER 24 HRS/DAY. SHE HAS 2 LITTLE KIDS AND HAS TO WORK SHE CANNOT LOSE HER JOB. SHE HAS ALREADY BEEN OFF MORE TIME THAT THEY LIKE. HER BROTHER ALSO WORKS. DISCUSSED OPTIONS. TOLD HER THAT HER MOM MIGHT QUALIFY FOR A HOSPICE HOUSE. THE CLOSEST TO ALMO IS [facility] [place]. THEH OTHER OPTION IS A NURSING FACILITY WITH HOSPICE CARE THERE. TALKED TO HER ABOUT [facility]. SHE WOULD LIKE TO LOOK AT BOTH FACILITIES BEFORE SHE DECIDES. SHE WILL TRY TO GO SOON SHE CAN,IN THE NEXT FEW DAYS. HEATHER INFORMED TYREE MARAVILLA OF DISCUSSION.
[2018-05-03 16:03] VITALS: BP 150/86
--- NOTE | 2018-05-03 18:42 | NUR ---
COMFORT CARE. DAUGHTER TO VISIT TWO FACILITIES AND MAKE A DECISION TO WHERE PT WILL GO FOR HOSPICE CARE. CM FOLLOWING. PT AGREED TO TAKE PAIN MED THIS EVENING. PT WAS MOANING WITH TEARS IN EYES. PT SHOOK HEAD YES WHEN ASKED IF IN PAIN BUT UNABLE TO VERBALIZE PAIN. PT SWALLOWED WITHOUT DIFFICULTY. PT CURRENTLY APPEARS COMFORTABLE, LAYING IN BED WITH EYES CLOSED. RESPIRATIONS EVEN AND UNALBORED AT REST. PT PULLS AT TELE MONITOR AND WILL NOT KEEP O2 ON. DURING ASSESSMENT THIS AM, PT O2 SAT 80 RA. 3L O2 NC APPLIED AND SAT RECOVERED AFTER SEVERAL MINUTES TO 90. PT ENCOURAGED TO KEEP O2 ON. FREQUENT REORIENTATION. OCCASIONALLY ALERT, ORIENTED TO SELF.
[2018-05-03 20:00] VITALS: BP 150/92
--- NOTE | 2018-05-04 06:34 | NUR ---
DOCTOR NOTIFED OF PATIENT'S TEMP, SEE ORDERS. PATIENT RESTED IN BED, PATIENT CURRENTLY APPEARS TO BE IN COMFORT. FALL PRECAUTIONS IN PLACE, CALL LIGHT WITH IN REACH, HOURLY ROUNDING OBSERVED, BED ALARM ON.
[2018-05-04 07:30] VITALS: BP 125/94
--- NOTE | 2018-05-04 12:07 | NUR ---
RECEIVED PT CARE 0700. SHE IS DROWSY BUT EASILY ARROUSABLE. NON VERBAL THIS AM AND I AM UNABLE TO ADEQUATELY ASSESS ORIENTATION, VSS. OPENER TENDER TRACING ST. HEART RATE LOW 100'S. O2 SAT 93% ON 3L NC. REPOSITIONED FOR COMFORT. SHE IS INCONTINENT OF BLADDER X2 THIS AM. IVF INFUSING. AM ASSESSMENT CHARTED. ORAL MEDICATIONS CRUSHED AND GIVEN WITH PUDDING. PATIENT WAS VERY RESISTENT TO TAKING ANYTHING ORAL AND NEEDED A LOT OF ENCOURAGEMENT. FAMILY IS AT BEDSIDE THIS AM. TELE MONITOR DISCONTINUED AND RETURNED TO NURSE'S DESK. REPORT CALLED TO KANDICE CLEMENTS ON JSSI. PATIENT TRANSFERRING TO ROOM 115. ALL HER BELONGINGS ARE PACKED AND TRANSFERRING WITH THE PATIENT.
--- NOTE | 2018-05-04 12:27 | NUR ---
GOT REPORT FROM EZEQUIEL AT 1145. PT TRANSFERED AND ARRIVED ON FLOOR AT 1215. AWAKE BUT NOT ORIENTED OR SPEAKING. PT MOANING IN DISCOMFORT. FAN PROVIDED FOR COMFORT. OXYGEN RUNNING AT 2L. MORPHINE GIVEN AT 1220 FOR PAIN. PT IS DNR AND IS RECEIVING COMFORT CARE. FLUIDS GOING AT 80ML/HR. FAMILY AT BEDSIDE. WILL CONTINUE TO MONITOR. DR ROBERTS PAGED FOR INCREASE IN ATIVAN.
--- NOTE | 2018-05-04 16:15 | NUR ---
PT.TRANSFERRED FROM TELEMETRY UNIT EARLIER THIS AFTERNOON. DAUGHTER,CHRISTIANO HERE WITH OTHER FAMILY MEMBERS AT THIS TIME. SHE TOLD CM THAT SHE WOULD LIKE FOR HER MOM TO GO TO THE [facility] WITH [facility]. SHE DID NOT TOUR BUT ANOTHER FAMILY MEMBER HAD BEEN THERE AND SAID IT WAS GOOD. CM FAXED REFERRAL TO [place] [phone]. SPOKE WITH HER AT [phone]. DAUGHTER WOULD LIKE TO TALK TO SOMEONE LINDA FROM HOSPICE. CM SPOKE WITH [facility] AND FAXED REFERRAL FOR A HOSPICE BED TO HER. SHE WILL REVIEW IN AM. DAUGHTER SAID SOMEONE FROM HOSPICE CALLED HER AND THEY WILL MEET AT 4PM TOMORROW AFTER SHE GETS OFF WORK. PT.COULD MOST LIKELY GO TO [facility] TOMORROW AND HOSPICE COULD MEET WITH DAUGHTER THERE AFTER SHE GETS OFF WORK. WILL FINALIZE PLANS IN AM.
--- NOTE | 2018-05-04 19:41 | NUR ---
PT TRANSFERED TO UNIT AROUND 1230. SCANS SHOWED METS FROM LUNGS MOVED TO THE BRAIN. PT IS DNR AND IS ON COMFORT CARE. DROWSY, NOT ORIENTED, BUT WILL OPEN EYES TO VOICE. HAS NOT TALKED DURING THE STAY. HAS O2 GOING AT 2L FOR COMFORT. INCONTINENT. TEST SHOWED POSITIVE FOR UTI, NOT RECIEVING ANTIBIOTICS. IV IN LEFT AC AND FLUIDS RUNNING AT 80ML/HR. IS ON A REGULAR DIET, BUT HAS NOT EATEN ANYTHING. DAUGHTER WAS LOOKING FOR A HOSPICE HOUSE FOR PT TO BE TRANSFERED TO, WILL KNOW MORE ON PLACEMENT TOMORROW. MORPHINE GIVEN EVERY 2-2.5 HOURS FOR PAIN, PT MOANING. GOT ATIVAN ORDERED PRN FOR ADDITIONAL PAIN/ANXIETY CONTROL. FAMILY WAS IN ROOM MOST OF THE DAY, PLEASANT. FALL PRECAUTIONS IN PLACE. WILL CONTINUE TO MONITOR.
[2018-05-04 20:00] VITALS: BP 155/79
--- NOTE | 2018-05-04 20:06 | NUR ---
NURSING DOCUMENTATION BY GRAZYNA SANCHEZ REVIEWED.
[2018-05-05 03:53] VITALS: BP 142/76
--- NOTE | 2018-05-05 05:30 | NUR ---
ASSUMED CARE OF PT AT 1900 PT LETHARGIC AND NON VERBAL. AT 1999 VS PT TACHYCARDIC, TACHYPNIC AND FEBRILE NOTIFIED DR ROBERTS OBTAINED ORDERS FOR RECTAL TYLENOL. PT GIVEN PAIN MEDS BUT STILL NOT TOLERATING TURNING. FOR COMFORT MEASURES PT TURNED Q4H AND OBTAINED ORDER FOR GARRETT. WILL CONTINUE PLAN OF CARE.
[2018-05-05 07:55] VITALS: BP 112/80
--- NOTE | 2018-05-05 15:30 | NUR ---
WAITING TO SEE IF THE [facility] CAN TAKE PT.INTO A MEDICARE/MEDICAID HOSPICE BED. KARL/BERNADINE CALLED AND SAID THEY DO NOT HAVE A BED. OK'D GIP WITH [facility]. NOTIFIED YAEL,RN/[facility]. SHE WILL BE OUT TO MEET DAUGHTER,CHRISTIANO, AND EVAL PT.FOR GIP. NOTIFIED CHRISTIANO BY PHONE. SHE SIAD I COULD INFORM VISITORS IN ROOM,WHICH ARE PT.'S MOM AND DAD AND OTHER FAMILY.
--- NOTE | 2018-05-05 18:36 | NUR ---
PT COMFORT CARE MEASURES. PT HAS INCREASED TEMP, TACHYPNEA AND TACHYCARDIA. PT MILDLY RESPONSIVE TO MOVEMENT AND PAIN. PT LETHARGIC AND HAS LETHARGIC AND SLEEPING THIS SHIFT. PT VS ORDERED IN AM ONLY. PT PROVIDED WITH MORPHINE FOR AIR HUNGER AND PAIN THIS SHIFT. DEBI FROM [facility] HERE AND STATES THE PT HAS TO BE ABLE TO GET A BED IN A FACILITY IN ORDER TO BE TRANSFERED TO HOSPICE. PT FAMILY UPDATED TO PT CONDITION AND HAD CONVERSATION WITH LAKIA KING WHILE SHE WAS HERE AND TORY WITH CASE MANAGEMENT IS WORKING WITH LAKIA TO FIGURE OUT THE BEST PATH FOR THE PATIENT AND FAMILY. PT HAS A GARRETT AT THIS TIME DUE TO COMFORT MEASURES AND MINIMAL INTERVENTIONS PER FAMILY REQUEST. PT NO LONGER A CANIDATE FOR TURN PROTOCOL DUE TO FAMILY REFUSING AND WANTING COMFORT MEASURES INSTEAD. PT IV FLUIDS D/C'D THIS SHIFT. PT ON 2L O2 PER NC WITH LOW O2 SATS PER PROTOCOL FOR COMFORT MEASURES. PT DRESSING ON R NECK STILL IN PLACE. PT PROVIDED WITH FENTANYL PATCH THIS SHIFT. WILL PASS ON TO HENRRY RN.
--- NOTE | 2018-05-06 06:27 | NUR ---
ASSUMED CARE OF PT AT 1900 PT LETHARGIC AND UNRESPONSIVE PT ON COMFOR CARE. GAVE PRN MORPHINE Q2H ATTEMPTED TO SWAB MOUTH BUT PT WOULD BITE DOWN HARD ON THE SWABS SO I COULDNT SWAB HER MOUTH. PT COMFORTABLE UNTIL 0115 PT BEGAN MOANING GAVE PRN ATIVAN 0.5 MG AND TORADOL 30 MGS. PT STILL SEEMED UNCOMFORTABLE GAVE PRN MORPHINE AT 0153. PT STILL UNCOMFORTABLE. PAGED DR AZUL TO ASK FOR ADITIONAL MEDICATION. PT HAD STOPPED MOANING BY THE TIME THE DOCTOR CALLED BACK HE STATED IF SHE BECAME UNCOMFORTABLE AGAIN I COULD GIVE A 1X DOSE OF 10MG MORPHINE. CHECKED AT 0300 AND 0330 PT APPEARED COMFORTABLE. WENT INTO ROOM AT 0415 PT NOTED WITHOUT RESPIRATIONS CHECKED PULSE NONE NOTED. MARYSE LEON RN VERIFIED THESE FINDINGS. NOTIFIED PROVIDER, FAMILY AND MTN.
--- NOTE | 2018-05-06 09:25 | NUR ---
PT REMAINS IN ROOM . NO FAMILY PRESENT. ICE TO EYES, HOB ELEVATED. AWATIING MTN INPUT. MTN HAS NOT YET SPOKEN TO FAMILY
--- NOTE | 2018-05-20 15:44 | EEG ---
[address] [address] EEG STUDY REPORT Name: DENEEN PITTMAN Room: [address] IN M.R.#: [id number] Admission: 05/02/18 Attend Phys: Supriya Cooper MD Discharge: 05/06/18 Date of : 77 Report #: [id number] THIS REPORT FOR: //name// CC: Ike Cooper DATE OF SERVICE: 05/03/2018 This patient is being evaluated for altered mental status. EEG was done by placing the electrode by standard 10-20 system of electrode placement. Both referential and sequential montages were used for recording. Background activity in this patient's EEG is about 7 Hz and 30 microvolt. The patient went to sleep that is associated with bilaterally symmetrical sleep spindle and vertex sharp waves. Photic stimulation is unremarkable. IMPRESSION: This is an abnormal EEG because it is disorganized and poorly formed. That is a nonspecific abnormality, which can occur with encephalopathy, effect of psychotropic medication, dementia, etc. Clinical correlation is recommended. <ELECTRONICALLY SIGNED> By: Fabian Ferrer MD 05/20/18 1544 [id number] Ferrer MD /nt
--- NOTE | 2018-05-20 15:44 | CON ---
[address] [address] CONSULTATION Name: DENEEN PITTMAN Room: [address] IN M.R.#: [id number] Admission: 05/02/18 Attend Phys: Supriya Cooper MD Discharge: 05/06/18 Date of : 77 Report #: [id number] THIS REPORT FOR: //name// CC: Ike Cooper DATE OF SERVICE: 05/03/2018 HISTORY OF PRESENT ILLNESS: This is a 42-year-old female patient who was evaluated by me for any neurological etiology for the patient's altered mental status. The records were reviewed. The patient did not provide any good history. The patient's family is here and they provided some good history and I reviewed the record. 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 She has left AMA at one time, but presently is not doing very well. She is lethargic. She does not follow much commands. She has been seen by Oncology and I reviewed the note. They are thinking of hospice in this patient. REVIEW OF SYSTEMS: Pretty extensive. She has hypercoagulable state and she had a large thrombus. She has a pancytopenia. She has a history of medical noncompliance. She has a fall for which she was admitted. She is not saying much and appeared to be mostly unresponsive. I carried out the 14-point review of system the best I could carry out and this was her relevant 14-point review of system. PAST MEDICAL HISTORY: Positive for metastatic carcinoma. FAMILY HISTORY: Noncontributory. SOCIAL HISTORY: The patient has a family and I discussed the situation with them. PHYSICAL EXAMINATION: Indicate that yesterday when I saw her, she was somewhat responsive. Today, she did not do anything, but even when she is responsive, she can barely follow simple commands. Cranial nerve examination 2-12 was attempted, but it was not possible to carry out because she did not cooperate. Similarly neuromuscular examination was very difficult to carry out. She is moderately built individual who does not have any dysmorphic features of eyes, ears and face. There does not appear to be any respiratory difficulty. Blood pressure is 139/75, pulse is 108 and temperature is 99.5. LABORATORY DATA: Her MRIs were reviewed and it showed metastasis to the brain. IMPRESSION: The patient has numerous problems. Neurological consultation was requested to evaluate the patient for the possibility [place] [address] CONSULTATION Name: DENEEN PITTMAN Room: [address]#: [id number] Admission: 05/02/18 Attend Phys: Supriya Cooper MD Discharge: 05/06/18 Date of : 77 Report #: [id number] I suspect her altered mental status is most likely secondary to metastasis to the brain and the management will be deferred to Oncology. I will check an EEG, but until that shows some seizure activity, I do not think I have anything specific to add. I have discussed all of it with the patient on two occasions and more than 50 minutes of time was spent and majority of that time was spent counseling the family and the patient yesterday and coordinating her care. <ELECTRONICALLY SIGNED> By: Fabian Ferrer MD 05/20/18 1544 [id number] [id number] Ferrer MD /nt
== END 2018-05-06 04:15 | DRG 180 ==
LOC: M.ERS 23:09 → M.2W 05-02 00:27 → M.TBA-ER 05-02 00:27 → M.2W 05-02 01:31 → M.ORTHSURG 05-04 12:10
PROVIDERS: Internal Medicine; Personal Emergency Response Attendant; ADMIT Family Medicine
DX: C34.90 Malignant neoplasm of unspecified part of unspecified bronchus or lung (principal); G92 Toxic encephalopathy; E43 Unspecified severe protein-calorie malnutrition; D61.810 Antineoplastic chemotherapy induced pancytopenia; D68.59 Other primary thrombophilia; C79.31 Secondary malignant neoplasm of brain; I46.8 Cardiac arrest due to other underlying condition; F31.9 Bipolar disorder, unspecified; G89.3 Neoplasm related pain (acute) (chronic); F41.9 Anxiety disorder, unspecified; W18.30XA Fall on same level, unspecified, initial encounter; F17.210 Nicotine dependence, cigarettes, uncomplicated; Y93.89 Activity, other specified; Y92.89 Other specified places as the place of occurrence of the external cause; Y99.8 Other external cause status; Z90.710 Acquired absence of both cervix and uterus; Z68.29 Body mass index [BMI] 29.0-29.9, adult; Z87.442 Personal history of urinary calculi; Z93.6 Other artificial openings of urinary tract status; Z92.21 Personal history of antineoplastic chemotherapy; Z92.3 Personal history of irradiation; Z74.01 Bed confinement status; Z86.718 Personal history of other venous thrombosis and embolism; Z79.899 Other long term (current) drug therapy; Z88.2 Allergy status to sulfonamides; Z91.14 Patient's other noncompliance with medication regimen; Z28.21 Immunization not carried out because of patient refusal